=== PATIENT | male | born 1995 | race Caucasian/White ===

== ENCOUNTER 2023-01-27 18:44 | Emergency (ER) | payer SELFPAY ==
[~2023-01-27 18:44] MED LIST: ceFAZolin 2 GM in Premix Bag 1 BAG IV ONE
[2023-01-27] MEDS ORDERED: Sodium Chloride 0.9% 10 ML Syringe FLUSH PRN ×2 (18:46)
[2023-01-27] MEDS ORDERED: Diphtheria,Pertussis(Acell),Tetanus Vaccine 0.5 ML Syringe IM ONE (18:47)
[2023-01-27] MEDS ORDERED: HYDROmorphone 1 MG/ML Syringe IVPUSH ONE ×2 (18:49→19:44)
[2023-01-27 18:56] LABS: BASOPHILS ABSOLUTE AUTO 0.09 K/uL (0.00-0.10); BASOPHILS PERCENT AUTO 0.9 % (0.1-1.3); EOSINOPHILS ABSOLUTE AUTO 0.22 K/uL (0.00-0.40); EOSINOPHILS PERCENT AUTO 2.1 % (0.0-5.4); HEMATOCRIT 45.8 % (38.4-49.7); IMMATURE GRAN ABSOLUTE AUTO 0.03 K/uL (0.00-0.23); IMMATURE GRAN PERCENT AUTO 0.3 % (0.0-0.7); LYMPHOCYTES ABSOLUTE AUTO 2.82 K/uL (0.8-3.3); LYMPHOCYTES PERCENT AUTO 27.2 % (11.4-47.7); MEAN CORPUSCULAR HEMOGLOBIN 29.1 pg (31.6-35.5); MEAN CORPUSCULAR HGB CONC 32.8 g/dL (31.6-35.5); MEAN CORPUSCULAR VOLUME 88.8 fL (81.4-99.0); MONOCYTES ABSOLUTE AUTO 0.79 K/uL (0.20-0.90); MONOCYTES PERCENT AUTO 7.6 % (3.3-12.6); NEUTROPHILS ABSOLUTE AUTO 6.43 K/uL (1.0-7.6); NEUTROPHILS PERCENT AUTO 61.9 % (40.0-78.1); PLATELET COUNT,PLT 257 K/uL (130-375); RED BLOOD CELL COUNT 5.16 M/uL (4.14-5.76); WHITE BLOOD CELL COUNT,WBC 10.4 K/uL (3.2-11.0)
[2023-01-27] MEDS ORDERED: Sodium Chloride 0.9% 1,000 ML IV SCH ×2 (19:00)
[2023-01-27 19:05] LABS: INR 1.1; PROTHROMBIN TIME 11.1 sec (9.2-10.6); PTT,PARTIAL THROMBOPLSTIN TIME 22.6 sec (21.8-27.3)
[2023-01-27 19:07] LABS: A/G RATIO 1.4 (1.2-2.2); ALANINE AMINOTRANSFERASE,ALT 32 U/L (12-78); ALBUMIN 4.2 g/dL (3.4-5.0); ALKALINE PHOSPHATASE 79 U/L (46-116); ANION GAP 19.5 mmol/L (5.0-14.0); ASPARTATE AMNIOTRANSFERASE,AST 20 U/L (15-37); BILIRUBIN TOTAL 0.5 mg/dL (0.2-1.0); BLOOD UREA NITROGEN,BUN 20 mg/dL (7-18); CALCIUM 9.5 mg/dL (8.5-10.1); CARBON DIOXIDE,CO2 22 mmol/L (21-32); CHLORIDE,CL 103 mmol/L (100-108); CREATININE 1.3 mg/dL (0.8-1.3); EST CRCL DRUG DOSING (CG) 83.38 mL/min; ESTIMATED GFR 76 mL/min (>60); GLUCOSE RANDOM 95 mg/dL (74-106); POTASSIUM,K 3.5 mmol/L (3.6-5.2); PROTEIN TOTAL,TP 7.1 g/dL (6.4-8.2); SODIUM,NA 141 mmol/L (140-148)
[2023-01-27 19:59] VITALS: BP 127/73; PULSE 86
== END 2023-01-27 19:59 ==
LOC: JP.ED 18:44
DX: S81.831A Puncture wound without foreign body, right lower leg, initial encounter (principal); Z23 Encounter for immunization; Z20.822 Contact with and (suspected) exposure to COVID-19; W34.00XA Accidental discharge from unspecified firearms or gun, initial encounter
CPT/HCPCS: 36415; 73590; 80053; 85025; 85610; 85730; 86850; 86900; 86901; 87635; 90471; 90715; 96365; 96375; 96376; 99285; G0390; J0690; J1170; J3490; J7030; U0002